=== PATIENT | female | born 1960 | race Caucasian/White ===

== ENCOUNTER → 2016-11-14 | Outpatient (CLI) | payer MEDICARE ==
[2016-11-14 07:19] LABS: Basophils # (A) 0.1 k/uL (0-0.2); Basophils % (A) 1 %; CH 32.5; CHCM 34.7; Eosinophils # (A) 0.2 k/uL (0-0.7); Eosinophils % (A) 3 %; HDW 2.67; HGB 15.8 gm/dL (11.4-16.0); Luc # (Auto) 0.17; Luc % (Auto) 2; Lymphocytes # (A) 2.3 k/uL (1.0-4.8); Lymphocytes % (A) 29 %; MCH 32.3 pg (25.0-35.0); MCHC 34.3 g/dL (31.0-37.0); MCV 94.1 fL (80.0-100.0); Mean Platelet Volume 7.9; Monocytes # (A) 0.3 k/uL (0-1.0); Monocytes % (A) 4 %; Neutrophils % (A) 62 %; RBC 4.89 m/uL (3.80-5.40); RDW 12.1 % (11.5-15.5); WBC 8.1 k/uL (3.8-10.6); WBC (Perox) 7.98
[2016-11-14 09:14] LABS: Erythrocyte Sedimentation Rate 8 mm/hr (0-20)
[2016-11-14 10:44] LABS: ALT 28 U/L (9-52); AST 16 U/L (14-36); Alkaline Phosphatase 73 U/L (38-126); Anion Gap 10 mmol/L; Blood Urea Nitrogen 21 mg/dL (7-17); Calcium 9.5 mg/dL (8.4-10.2); Carbon Dioxide 22 mmol/L (22-30); Chloride 110 mmol/L (98-107); Cholesterol 220 mg/dL (<200); Creatine Kinase 87 U/L (30-135); Glucose 103 mg/dL (74-99); HDL Cholesterol 39 mg/dL (40-60); Non-African American GFR(MDRD) >60 (>60 ml/min/1.73 sqM); Potassium 4.6 mmol/L (3.5-5.1); Sodium 142 mmol/L (137-145); Total Bilirubin 0.7 mg/dL (0.2-1.3); Total Protein 6.9 g/dL (6.3-8.2); Triglycerides 196 mg/dL (<150)
== END | disposition home or self-care (01) ==
LOC: LABWHC1 06:47
PROVIDERS: ATTEND Internal Medicine
DX: J44.9 Chronic obstructive pulmonary disease, unspecified (principal); E78.5 Hyperlipidemia, unspecified; E03.9 Hypothyroidism, unspecified; E55.9 Vitamin D deficiency, unspecified
CPT/HCPCS: 36415; 80053; 80061; 82550; 84439; 84443; 85025; 85652; 86140

== ENCOUNTER 2017-04-20 08:54 | Day surgery (SDC) | payer MEDICARE ==
[2017-04-17 16:20] VITALS: BMI 29.4
[~2017-04-20 08:54] MED LIST: LIDOCAINE 1% 20 ML VIAL (10MG/ML) FOR IV START INTRADERMA PRN
[2017-04-20 09:39] VITALS: RESP 16; TEMP 97.9
[2017-04-20] MEDS: LACTATED RINGERS 1,000 ML IV SCH ×2 (09:47→09:52)
[2017-04-20] MEDS ORDERED: GLYCOPYRROLATE 0.2 MG/ML 2 ML VIAL ONE (09:54)
[2017-04-20] MEDS ORDERED: PROPOFOL 10 MG/ML 20 ML VIAL IV ONE (09:54)
[2017-04-20] MEDS ORDERED: LIDOCAINE 1% INJ 10MG/ML (20 ML MDV) ONE (09:54)
--- NOTE | 2017-04-20 10:23 | P.PCN ---
Date of Procedure: 04/20/17 Preoperative Diagnosis: Postoperative Diagnosis: Procedure(s) Performed: Procedure: Esophagogastroduodenoscopy and biopsy. Preoperative diagnosis: Epigastric pain not responding to medical therapy. Postoperative diagnosis: 1. Sliding hiatal hernia with no obvious esophagitis or complicated reflux disease. 2. Mild gastritis and duodenitis. Preparation and sedation: Was provided by anesthesia. Brief clinical history: The patient is a 56-year-old female who was evaluated in the office regarding epigastric pain and bloating that she has had for the last several months without improvement with medical therapy including treatment for H. pylori infection. The patient had colonoscopy around 5 years ago. This evaluation is to assess for peptic ulcer disease, complicated reflux disease or other pathology. Procedure: With the patient on her left lateral decubitus position and after informed consent and adequate sedation, I passed the Olympus-GIF 160 video upper endoscope through the cricopharyngeus down the esophagus. GE junction was around 36 cm from the incisors and there was a sliding hiatal hernia measuring between 1 and 2 cm. The esophagus did not show any obvious erosions, ulcers, strictures or Bartholomew's esophagus. The endoscope was then passed into the stomach which was insufflated with air and inspected in detail including the retroflex view in the cardia. There was some mottling and erythema in the antrum but no ulcers or erosions. Pyloric channel did not show any ulcers. Duodenal bulb, post bulbar area and descending duodenum showed some mottling and erythema but no ulcers, erosions or bleeding. I obtained multiple biopsies from the duodenum, antrum and esophagus then the endoscope was withdrawn. The patient tolerated the procedure well. Plan: The patient was reassured. Will await biopsy results and make further plans. I will keep you updated on her progress. Implants: Indications for Procedure: Operative Findings: Description of Procedure:
[2017-04-20 10:35] VITALS: BP 117/65; PULSE 64
== END 2017-04-20 10:59 | disposition home or self-care (01) ==
LOC: ORWHC2ENDO 08:54
DX: K29.70 Gastritis, unspecified, without bleeding (principal); K29.80 Duodenitis without bleeding; K44.9 Diaphragmatic hernia without obstruction or gangrene; G40.909 Epilepsy, unspecified, not intractable, without status epilepticus; M19.90 Unspecified osteoarthritis, unspecified site; G89.29 Other chronic pain; Z90.710 Acquired absence of both cervix and uterus; Z90.49 Acquired absence of other specified parts of digestive tract; Z79.891 Long term (current) use of opiate analgesic; Z79.899 Other long term (current) drug therapy; Z88.5 Allergy status to narcotic agent; Z88.0 Allergy status to penicillin; Z88.1 Allergy status to other antibiotic agents; Z85.42 Personal history of malignant neoplasm of other parts of uterus
CPT/HCPCS: 88305; 88342; 43239; J2001; J2704

== ENCOUNTER → 2019-03-27 | Outpatient (CLI) | payer MEDICARE, OTHER ==
[2019-03-27 09:24] LABS: Basophils # (A) 0.1 k/uL (0-0.2); Basophils % (A) 1 %; Eosinophils # (A) 0.2 k/uL (0-0.7); Eosinophils % (A) 2 %; HGB 15.2 gm/dL (11.4-16.0); Lymphocytes # (A) 2.6 k/uL (1.0-4.8); Lymphocytes % (A) 32 %; MCH 31.5 pg (25.0-35.0); MCV 95.4 fL (80.0-100.0); Monocytes # (A) 0.3 k/uL (0-1.0); Monocytes % (A) 4 %; Neutrophils # (A) 4.7 k/uL (1.3-7.7); Neutrophils % (A) 59 %; Platelet Count 262 k/uL (150-450); RBC 4.82 m/uL (3.80-5.40); RDW 14.2 % (11.5-15.5)
[2019-03-27 10:24] LABS: Erythrocyte Sedimentation Rate 9 mm/hr (0-20)
[2019-03-27 17:31] LABS: Vitamin D 25 Hydroxy 26.9 ng/mL (30.0-100.0)
[2019-03-27 18:07] LABS: African American GFR (CKD) 82.8 (60.0-200.0); Albumin 4.6 g/dL (3.80-4.90); Albumin/Globulin Ratio 2.09 (1.60-3.17); Anion Gap 7.2 mmol/L (4.00-12.00); C Reactive Protein 0.5 mg/dL (0.0-0.8); Calcium 9.7 mg/dL (8.7-10.3); Carbon Dioxide 26.8 mmol/L (21.6-31.8); Globulin 2.2 g/dL (1.6-3.3); Potassium 4.9 mmol/L (3.5-5.5); Total Bilirubin 0.4 mg/dL (0.3-1.2); Total Protein 6.8 g/dL (6.2-8.2)
[2019-03-27 18:08] LABS: LDL Cholesterol,Calculated 122.2 mg/dL (0.0-131.0); VLDL Calculation 55.8 mg/dL (5.00-40.00)
[2019-03-27 19:11] LABS: T4, Free (Free Thyroxine) 0.9 ng/dL (0.80-1.80)
== END | disposition home or self-care (01) ==
LOC: LABWHC1 08:30
PROVIDERS: ATTEND Internal Medicine
DX: D64.9 Anemia, unspecified (principal); J44.9 Chronic obstructive pulmonary disease, unspecified; E78.5 Hyperlipidemia, unspecified; I10 Essential (primary) hypertension; E03.9 Hypothyroidism, unspecified; E55.9 Vitamin D deficiency, unspecified
CPT/HCPCS: 36415; 80053; 80061; 80074; 82306; 82550; 84439; 84443; 85025; 85652; 86140

== ENCOUNTER → 2020-02-06 | Outpatient (CLI) | payer MEDICARE, OTHER ==
[2020-02-06 19:58] LABS: African American GFR (CKD) 94.9 (60.0-200.0); Albumin 4.1 g/dL (3.80-4.90); Albumin/Globulin Ratio 2.05 (1.60-3.17); Anion Gap 8.3 mmol/L (4.00-12.00); Calcium 9.4 mg/dL (8.7-10.3); Carbon Dioxide 25.7 mmol/L (21.6-31.8); Non-African American GFR(CKD) 81.8 (60.0-200.0); Potassium 3.9 mmol/L (3.5-5.5); Total Bilirubin 0.6 mg/dL (0.2-1.2); Total Protein 6.1 g/dL (6.2-8.2)
[2020-02-10 07:59] LABS: Vit B1(Thiamine) 62 ug/L (38-122)
[2020-02-13 07:13] LABS: Nicotinamide 16 ng/mL; Nicotinic Acid None Detected; Nicotinuric Acid None Detected
== END | disposition home or self-care (01) ==
LOC: LABWHC1 13:31
PROVIDERS: ATTEND Psychiatry & Neurology Pain Medicine
DX: R53.83 Other fatigue (principal)
CPT/HCPCS: 36415; 80053; 82607; 84207; 84425; 84439; 84443; 84481; 84591

== ENCOUNTER → 2021-05-31 | Outpatient (CLI) | payer MEDICARE, OTHER ==
[2021-05-31 16:58] LABS: African American GFR (CKD) 80.8 (60.0-200.0); Albumin 4.3 g/dL (3.8-4.9); Albumin/Globulin Ratio 1.98 (1.60-3.17); Anion Gap 13.3 mmol/L (4.00-12.00); BUN/Creat Ratio 20.82 Ratio (12.00-20.00); Blood Urea Nitrogen 18.8 mg/dL (9.0-27.0); C Reactive Protein 1.3 mg/dL (0.00-0.80); Calcium 9.3 mg/dL (8.7-10.3); Carbon Dioxide 19.7 mmol/L (21.6-31.8); Chol/HDL Ratio 5.97 Ratio; Globulin 2.2 g/dL (1.6-3.3); HDL Cholesterol 36.7 mg/dL (40.00-60.00); LDL Cholesterol,Calculated 150.1 mg/dL (0.0-131.0); Magnesium 2.1 mg/dL (1.5-2.4); Non-African American GFR(CKD) 69.7 (60.0-200.0); Phosphorus 3.1 mg/dL (2.4-5.1); Potassium 4.1 mmol/L (3.5-5.5); Total Bilirubin 0.3 mg/dL (0.30-1.20); Total Protein 6.5 g/dL (6.2-8.2); Uric Acid 4.4 mg/dL (2.9-7.7); VLDL Calculation 32.2 mg/dL (5.00-40.00)
[2021-05-31 20:37] LABS: Basophils # (A) 0.05 X 10*3/uL (0.00-0.10); Basophils % (A) 0.8 %; Eosinophils # (A) 0.16 X 10*3/uL (0.04-0.35); Eosinophils % (A) 2.5 %; HCT 42.9 % (37.2-46.3); Lymphocytes # (A) 1.95 X 10*3/uL (0.90-5.00); MCH 31.1 pg (27.0-32.0); MCHC 32.6 g/dL (32.0-37.0); MCV 95.3 fL (80.0-97.0); Mean Platelet Volume 10.1 fL (9.5-12.2); Monocytes # (A) 0.39 X 10*3/uL (0.20-1.00); Monocytes % (A) 6.2 %; Neutrophils # (A) 3.72 X 10*3/uL (1.80-7.70); Neutrophils % (A) 59.2 %; Platelet Count 242 X 10*3/uL (140-440); RDW 12.8 % (11.5-14.5); WBC 6.29 X 10*3/uL (4.50-10.00)
[2021-06-01 01:09] LABS: Erythrocyte Sedimentation Rate 13 mm/Hr (0-30)
== END | disposition home or self-care (01) ==
LOC: LABWHC1 08:31
PROVIDERS: ATTEND Internal Medicine
DX: Z00.00 Encounter for general adult medical examination without abnormal findings (principal); E78.5 Hyperlipidemia, unspecified; D64.9 Anemia, unspecified; M81.0 Age-related osteoporosis without current pathological fracture
CPT/HCPCS: 36415; 80053; 80061; 82550; 83735; 84100; 84443; 84550; 85025; 85652; 86140

== ENCOUNTER → 2021-09-09 | Outpatient (CLI) | payer MEDICARE, OTHER ==
[2021-09-09 10:44] LABS: African American GFR (CKD) 81.1 (60.0-200.0); BUN/Creat Ratio 24.56 Ratio (12.00-20.00); Blood Urea Nitrogen 22.1 mg/dL (9.0-27.0); Calcium 9.2 mg/dL (8.7-10.3); Potassium 3.8 mmol/L (3.5-5.5)
== END | disposition home or self-care (01) ==
LOC: LABWHC1 07:39
PROVIDERS: ATTEND Internal Medicine
DX: Z00.00 Encounter for general adult medical examination without abnormal findings (principal); E78.5 Hyperlipidemia, unspecified; R94.5 Abnormal results of liver function studies
CPT/HCPCS: 36415; 80048; 84450; 84460

== ENCOUNTER → 2021-09-10 | Outpatient (CLI) | payer MEDICARE, OTHER ==
--- NOTE | 2021-09-10 07:45 | XR ---
EXAMINATION TYPE: XR chest 2V DATE OF EXAM: 09/10/2021 COMPARISON: NONE HISTORY: Prior tobacco use TECHNIQUE: Frontal and lateral views of the chest are obtained. FINDINGS: There is no focal air space opacity, pleural effusion, or pneumothorax seen. The cardiac silhouette size is within normal limits. Anterior fusion plate cervical thoracic junction is present. Stimulator leads terminate in the mid to lower thoracic spinal canal. IMPRESSION: No acute cardiopulmonary process.
== END | disposition home or self-care (01) ==
LOC: RADXRMAIN 07:22
PROVIDERS: ATTEND Internal Medicine
DX: R06.02 Shortness of breath (principal); Z87.891 Personal history of nicotine dependence
CPT/HCPCS: 71046

== ENCOUNTER 2022-11-15 14:46 | Emergency (ER) | payer MEDICARE, OTHER ==
[2022-11-15 14:52] VITALS: TEMP 98.1
[2022-11-15] MEDS ORDERED: SODIUM CHLORIDE 0.9% 500 ML 500 ML IV STA (15:06)
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
[2022-11-15 15:49] LABS: Basophils # (A) 0.1 k/uL (0-0.2); Basophils % (A) 1 %; Eosinophils # (A) 0.2 k/uL (0-0.7); Eosinophils % (A) 3 %; HGB 15.6 gm/dL (11.4-16.0); Lymphocytes # (A) 2.8 k/uL (1.0-4.8); Lymphocytes % (A) 37 %; MCH 34.4 pg (25.0-35.0); MCHC 35.5 g/dL (31.0-37.0); MCV 97.2 fL (80.0-100.0); Mean Platelet Volume 7.6; Monocytes # (A) 0.3 k/uL (0-1.0); Monocytes % (A) 4 %; Neutrophils # (A) 4.1 k/uL (1.3-7.7); Neutrophils % (A) 53 %; Platelet Count 227 k/uL (150-450); RBC 4.53 m/uL (3.80-5.40); RDW 12.2 % (11.5-15.5); WBC 7.6 k/uL (3.8-10.6)
[2022-11-15 15:59] LABS: Albumin 4.3 g/dL (3.5-5.0); Calcium 9.7 mg/dL (8.4-10.2); Potassium 3.7 mmol/L (3.5-5.1); Total Bilirubin 0.7 mg/dL (0.2-1.3); Total Protein 7.1 g/dL (6.3-8.2)
[2022-11-15 16:03] LABS: Appearance,Urine Clear (Clear); Bilirubin,Urine Negative (Negative); Blood,Urine Negative (Negative); Color,Urine Yellow; Glucose,Urine (UA) Negative (Negative); Ketones,Urine Negative (Negative); Leukocyte Esterase,Urine Trace (Negative); Mucus,Urine Occasional /hpf; Nitrite,Urine Negative (Negative); PH, Urine 5.5 (5.0-8.0); Protein,Urine Negative (Negative); RBC,Urine 1 /hpf (0-5); Specific Gravity,Urine 1.021 (1.001-1.035); Squamous Epithelial Cell,Urine 3 /hpf (0-4); Urobilinogen,Urine <2.0 mg/dL (<2.0); WBC,Urine 2 /hpf (0-5)
--- NOTE | 2022-11-15 17:28 | CT ---
EXAMINATION TYPE: CT abdomen pelvis w con DATE OF EXAM: 11/15/2022 COMPARISON: None HISTORY: Abdominal pain, nausea, and vomiting. CT DLP: 762.2 mGycm Automated exposure control for dose reduction was used. CONTRAST: Performed with IV Contrast, patient injected with 100ml mL of Isovue 300. Images obtained from the diaphragm to the level of the pelvis with the IV contrast. The lung bases are clear. No pleural effusion. Heart size is normal. No pericardial effusion. Liver s pleen and stomach pancreas and gallbladder appear normal. The bile ducts are not dilated. There is no adrenal mass. Kidneys show satisfactory contrast opacification. No hydronephrosis. Ureter s are not dilated. No retroperitoneal adenopathy. There is device implanted over the left posterior i liac bone. There is multilevel posterior fusion surgery in the lumbar spine. The bladder distends smo othly. No pelvic mass. No free fluid in the pelvis. There is hysterectomy. The terminal ileum appears normal. Appendix not clearly seen. No sign of thickened appendix. There is atherosclerotic vascular calcification. There is a first-degree L3-4 spondylolisthesis. No l umbar compression fracture. The bony pelvis is intact. The hip joints appear intact. There is no mesenteric edema. No ascites or free air. No sign of a bowel obstruction. There is retain ed fecal material in large bowel. IMPRESSION: Previous surgery. Atherosclerotic vascular disease. Mild constipation. Appendix not seen.
[2022-11-15 18:09] VITALS: BP 147/66; PULSE 60; RESP 16
== END 2022-11-15 18:09 | disposition home or self-care (01) ==
LOC: EC 14:46
DX: K59.00 Constipation, unspecified (principal); F31.9 Bipolar disorder, unspecified; F17.200 Nicotine dependence, unspecified, uncomplicated; Z88.0 Allergy status to penicillin; Z88.8 Allergy status to other drugs, medicaments and biological substances
CPT/HCPCS: 36415; 80053; 82150; 83605; 83690; 85025; 81001; 74177; 99284; 96360; Q9967

== ENCOUNTER → 2022-12-06 | Outpatient (CLI) | payer MEDICARE, OTHER ==
[2022-12-06 09:15] LABS: Partial Thromboplastin Time 24.5 sec (22.0-30.0); Prothrombin Time 10.2 sec (9.0-12.0)
== END | disposition home or self-care (01) ==
LOC: LABPAT 07:52
PROVIDERS: ATTEND Physical Medicine & Rehabilitation Pain Medicine
DX: Z01.818 Encounter for other preprocedural examination (principal); I49.1 Atrial premature depolarization
CPT/HCPCS: 85610; 85730; 93005

== ENCOUNTER → 2023-02-14 | Outpatient (CLI) | payer MEDICARE, OTHER ==
--- NOTE | 2023-02-14 14:49 | XR ---
EXAMINATION TYPE: XR chest 2V DATE OF EXAM: 02/14/2023 2:35 PM COMPARISON: Chest radiographs from TECHNIQUE: XR chest 2V Frontal and lateral views of the chest. CLINICAL INDICATION:Female, 62 years old with history of R10.9 UNSPECIFIED ABDOMINAL PAIN; FINDINGS: Lungs/Pleura: There is no evidence of pleural effusion, focal consolidation, or pneumothorax. Pulmonary vascularity: Unremarkable. Heart/mediastinum: Cardiomediastinal silhouette is unremarkable. Musculoskeletal: No acute osseous pathology. There is fixation hardware in the lower cervical spine. Other findings: Stimulator leads project over the spine. IMPRESSION: No acute cardiopulmonary disease/process.
[2023-02-14 20:13] LABS: Blood Urea Nitrogen 22.6 mg/dL (9.0-27.0); Calcium 9.3 mg/dL (8.7-10.3); Carbon Dioxide 21.7 mmol/L (21.6-31.8); Chloride 107 mmol/L (96-109); Glucose 126 mg/dL (70-110); Potassium 3.8 mmol/L (3.5-5.5); Sodium 143 mmol/L (135-145)
[2023-02-14 20:53] LABS: Basophils # (A) 0.07 X 10*3/uL (0.00-0.10); Basophils % (A) 1.1 %; Eosinophils # (A) 0.17 X 10*3/uL (0.04-0.35); Eosinophils % (A) 2.6 %; HCT 41.1 % (37.2-46.3); Lymphocytes # (A) 2.38 X 10*3/uL (0.90-5.00); Lymphocytes % (A) 36.3 %; MCH 33.4 pg (27.0-32.0); MCHC 34.1 d/dL (32.0-37.0); MCV 98.1 FL (80.0-97.0); Mean Platelet Volume 9.9 FL (9.5-12.2); Monocytes # (A) 0.48 X 10*3/uL (0.20-1.00); Monocytes % (A) 7.3 %; NRBC Per 100 WBC 0 X 10*3/uL (0.00-0.01); Neutrophils # (A) 3.44 X 10*3/uL (1.80-7.70); Neutrophils % (A) 52.4 %; Platelet Count 234 X 10*3/uL (140-440); RBC 4.19 X 10*6/uL (4.10-5.20); RDW 12.6 % (11.5-14.5); WBC 6.56 X 10*3/uL (4.50-10.00)
[2023-02-14 21:48] LABS: Erythrocyte Sedimentation Rate 13 mm/Hr (0-30)
== END | disposition home or self-care (01) ==
LOC: RADXRMAIN 14:09
PROVIDERS: ATTEND Internal Medicine
DX: R10.9 Unspecified abdominal pain (principal); R06.02 Shortness of breath; F17.200 Nicotine dependence, unspecified, uncomplicated
CPT/HCPCS: 71046; 80048; 85025; 85652

== ENCOUNTER 2023-03-23 13:15 | Day surgery (SDC) | payer MEDICARE, OTHER ==
[~2023-03-23 13:15] MED LIST changes: +LACTATED RINGERS 1,000 ML IV SCH; -LIDOCAINE 1% 20 ML VIAL (10MG/ML) FOR IV START INTRADERMA PRN
[2023-03-23 13:39] VITALS: TEMP 97
[2023-03-23] MEDS ORDERED: PROPOFOL 10 MG/ML 20 ML VIAL IV ONE (14:21)
[2023-03-23] MEDS ORDERED: LIDOCAINE 2% INJ 20 MG/ML (2 ML VIAL) ONE (14:21)
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
--- NOTE | 2023-03-23 14:32 | P.PCN ---
Date of Procedure: 03/23/23 Description of Procedure: PREOPERATIVE DIAGNOSIS: Gastroesophageal reflux disease. Epigastric abdominal pain POSTOPERATIVE DIAGNOSIS: Gastroesophageal reflux disease with erosive esophagitis Gastritis. Duodenitis OPERATION: Esophagogastroduodenoscopy with biopsies along antrum and duodenum SURGEON: Arabella Rosario MD ANESTHESIA: MAC. INDICATIONS: The patient is a 62-year-old female who presents with reflux disease. Benefits and risks of the procedure were described. Informed consent was obtained. DESCRIPTION: The patient was brought into the endoscopy suite and laid in the left lateral decubitus position. An Olympus gastroscope was passed along the posterior oropharynx down to the distal esophagus where the squamocolumnar junction was encountered at 35 cm from the incisors. The stomach was entered and no bile reflux was found. Additional findings are listed below. Biopsies with cold f orceps were obtained of the antrum. The first through third portion of the duodenum was examined. Retroflexion of the scope confirmed Hill grade 1 lower esophageal valve. The squamocolumnar junction demonstrated LA grade B erosive esophagitis. The stomach was desufflated. The patient tolerated the procedure well. FINDINGS: Squamocolumnar junction 35 cm from the incisors. Diaphragmatic hiatus at 35 cm. Hill grade 1 lower esophageal valve. LA grade B erosive esophagitis. Biopsies obtained of the duodenum. Chronic gastritis with biopsies obtained. RECOMMENDATIONS: Upper endoscopy as needed.
--- NOTE | 2023-03-23 14:51 | P.PCN ---
Date of Procedure: 03/23/23 Description of Procedure: PREOPERATIVE DIAGNOSIS: Colonoscopy screening. POSTOPERATIVE DIAGNOSIS: Colonoscopy screening. Diverticulosis, sigmoid, moderate Pandiverticulosis OPERATION: Colonoscopy to the cecum, ileocecal valve and appendiceal orifice. SURGEON: Arabella Rosario MD. ANESTHESIA: MAC. INDICATIONS: The patient is a 62-year-old female who presents for colonoscopy screening. Benefits and risks were described and informed consent was obtained. DESCRIPTION OF PROCEDURE: The patient had undergone a MiraLAX prep. The patient had been brought into the operating room and laid in the left lateral decubitus position. After adequate intravenous sedation, the rectum was examined with 2% lidocaine jelly. No external hemorrhoids were encountered. The rectal tone was within normal limits. No lesions were palpated in the rectal vault. An Olympus colonoscope was advanced until the cecum, ileocecal valve and appendiceal orifice were clearly viewed. The prep was excellent. Severe sigmoid diverticulosis with pandiverticulosis was encountered. No colonic polyps were found. No evidence of focal colitis was found. Retroflexion of the scope demonstrated grade 2 internal hemorrhoids without active bleeding or inflammation. The colon was desufflated. The patient had tolerated the procedure well. Withdrawal time was over 6 minutes. FINDINGS: Aronchick preparation quality scale 1 (1-5) Internal hemorrhoids, grade 2 No external prolapsed hemorrhoids. No arteriovenous malformations. No adenomatous polyps. No focal colitis. RECOMMENDATIONS: Lower endoscopy 10 years, 2032 Plan - Discharge Summary Discharge Rx Participant: No New Discharge Prescriptions: Continue traZODone HCL [Desyrel] 100 mg PO HS Baclofen [Lioresal] 10 mg PO TID PRN PRN Reason: Muscle Pain HYDROcodone/APAP 7.5-325MG [[place] 7.5-325] 1 tab PO TID PRN PRN Reason: Pain Clopidogrel [Plavix] 75 mg PO HS Simvastatin [Zocor] 20 mg PO HS Aspirin 81 mg PO HS Diclofenac Sodium Gel [Voltaren Gel] 1 applic TOPICAL QID PRN PRN Reason: Pain Unk Multi Vit Gummie 1 tab PO DAILY Otc Barbara 1 tab PO HS Topiramate [Topamax] 100 mg PO BID Naloxone [Narcan] 1 spray NASAL ONCE PRN PRN Reason: O.D. lamoTRIgine [LaMICtal] 100 mg PO HS Butalb/Acetaminophen/Caffeine [Esgic 50-325-40 mg Tablet] 1 tab PO Q6H PRN PRN Reason: Migraine Headache Unk Hair Skin And Nails 1 tab PO DAILY Discharge Medication List traZODone HCL [Desyrel] 100 mg PO HS 12/20/13 [History] Baclofen [Lioresal] 10 mg PO TID PRN 04/17/17 [History] HYDROcodone/APAP 7.5-325MG [[place] 7.5-325] 1 tab PO TID PRN 04/17/17 [History] Aspirin 81 mg PO HS 11/15/22 [History] Butalb/Acetaminophen/Caffeine [Esgic 50-325-40 mg Tablet] 1 tab PO Q6H PRN 11/15/22 [History] Clopidogrel [Plavix] 75 mg PO HS 11/15/22 [History] Diclofenac Sodium Gel [Voltaren Gel] 1 applic TOPICAL QID PRN 11/15/22 [History] Naloxone [Narcan] 1 spray NASAL ONCE PRN 11/15/22 [History] Simvastatin [Zocor] 20 mg PO HS 11/15/22 [History] Topiramate [Topamax] 100 mg PO BID 11/15/22 [History] lamoTRIgine [LaMICtal] 100 mg PO HS 11/15/22 [History] Otc Barbara 1 tab PO HS 03/22/23 [History] Unk Hair Skin And Nails 1 tab PO DAILY 03/22/23 [History] Unk Multi Vit Gummie 1 tab PO DAILY 03/22/23 [History] Follow up Appointment(s)/Referral(s): Arabella Rosario MD [STAFF PHYSICIAN] - 04/04/23 1:30 pm Patient Instructions/Handouts: Diverticulosis Diet (GEN), Diverticulosis (DC) Activity/Diet/Wound Care/Special Instructions: Repeat colonoscopy 10 years2032 Discharge Disposition: HOME SELF-CARE
[2023-03-23 15:04] VITALS: RESP 14
[2023-03-23 15:58] VITALS: BP 110/59; PULSE 68
== END 2023-03-23 15:59 | disposition home or self-care (01) ==
LOC: ORWHC2ENDO 13:15
PROVIDERS: ATTEND Surgery Plastic and Reconstructive Surgery
DX: Z12.11 Encounter for screening for malignant neoplasm of colon (principal); K64.1 Second degree hemorrhoids; K29.50 Unspecified chronic gastritis without bleeding; K21.00 Gastro-esophageal reflux disease with esophagitis, without bleeding; K21.9 Gastro-esophageal reflux disease without esophagitis; K29.80 Duodenitis without bleeding; K57.30 Diverticulosis of large intestine without perforation or abscess without bleeding; D72.820 Lymphocytosis (symptomatic); F17.200 Nicotine dependence, unspecified, uncomplicated; E78.5 Hyperlipidemia, unspecified; G40.909 Epilepsy, unspecified, not intractable, without status epilepticus; Z85.42 Personal history of malignant neoplasm of other parts of uterus; Z86.718 Personal history of other venous thrombosis and embolism; Z83.49 Family history of other endocrine, nutritional and metabolic diseases; Z80.3 Family history of malignant neoplasm of breast; Z79.82 Long term (current) use of aspirin; Z79.02 Long term (current) use of antithrombotics/antiplatelets; Z88.0 Allergy status to penicillin; Z79.899 Other long term (current) drug therapy
CPT/HCPCS: 88305; 45378; 43239; J2704; J2001

== ENCOUNTER 2023-07-27 10:33 | Inpatient (IN) | payer MEDICARE, OTHER ==
[2023-07-26 09:54] VITALS: BMI 21.2
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
[~2023-07-27 10:33] MED LIST changes: +Antibiotics per Pharmacy 1 EACH MISC MISCELLANE PRN; +HEPARIN SODIUM,PORCINE/PF 5,000 UNIT/0.5 ML SYRINGE SQ PRN; -LACTATED RINGERS 1,000 ML IV SCH; +PEG 3350 (420 GM/BTL) + LYTES 4,000 ML BOTTLE PO ONE; +SODIUM CHLORIDE 0.9% 2,000 ML IV ONE
[2023-07-27] MEDS ORDERED: LACTATED RINGERS 1,000 ML IV ONE (11:01)
[2023-07-27] MEDS ORDERED: LIDOCAINE 1% INJ 10MG/ML (20 ML MDV) ONE (11:21)
[2023-07-27] MEDS ORDERED: PROPOFOL 10 MG/ML 20 ML VIAL IV ONE (11:21)
[2023-07-27 11:39] LABS: Basophils # (A) 0.1 k/uL (0-0.2); Basophils % (A) 1 %; Eosinophils # (A) 0.2 k/uL (0-0.7); Eosinophils % (A) 2 %; HCT 45.1 % (34.0-46.0); HGB 15.5 gm/dL (11.4-16.0); Lymphocytes # (A) 2.8 k/uL (1.0-4.8); Lymphocytes % (A) 33 %; MCH 33.1 pg (25.0-35.0); MCHC 34.3 g/dL (31.0-37.0); MCV 96.6 fL (80.0-100.0); Mean Platelet Volume 7.7; Monocytes # (A) 0.4 k/uL (0-1.0); Monocytes % (A) 5 %; Neutrophils # (A) 4.8 k/uL (1.3-7.7); Neutrophils % (A) 57 %; Platelet Count 230 k/uL (150-450); RBC 4.67 m/uL (3.80-5.40); RDW 12.3 % (11.5-15.5); WBC 8.3 k/uL (3.8-10.6)
--- NOTE | 2023-07-27 11:49 | P.PCN ---
Date of Procedure: 07/27/23 Description of Procedure: PREOPERATIVE DIAGNOSIS: Diverticulosis with diverticulitis POSTOPERATIVE DIAGNOSIS: Diverticulosis with diverticulitis Transverse colon adenoma OPERATION: Colonoscopy to the ileocecal valve and appendiceal orifice, cecum Colonoscopy with cold forceps biopsy SURGEON: Arabella Rosario MD. ANESTHESIA: MAC. INDICATIONS: The patient is an 63-year-old female who presents with chronic abdominal pain due to diverticulosis with diverticulitis. Benefits and risks were described and informed consent was obtained. DESCRIPTION OF PROCEDURE: The patient had undergone Sutab prep. The patient had been brought into the operating room and laid in the left lateral decubitus position. After adequate intravenous sedation, the rectum was examined with 2% lidocaine jelly. External hemorrhoids were encountered. The rectal tone was within normal limits. No lesions were palpated in the rectal vault. An Olympus colonoscope was advanced until the cecum, ileocecal valve and appendiceal orifice were clearly viewed. The prep was fair. Sigmoid diverticulosis was encountered. Colonic polyps were found and removed. No evidence of focal colitis was found. Retroflexion of the scope demonstrated grade 2 internal hemorrhoids without active bleeding or inflammation. The colon was desufflated. The patient had tolerated the procedure well. Withdrawal time was over 6 minutes. FINDINGS: Aronchick preparation quality scale 2+ (1-5) Internal hemorrhoids, grade 3 with recent inflammation and bleeding External hemorrhoids, grade 3. No arteriovenous malformations. Sigmoid diverticulosis and had a redundant sigmoid colon Removal of 2 polyps: - Cold forceps biopsy at proximal transverse colon x 2, 4- 5 mm polyp. No focal colitis. RECOMMENDATIONS: Patient has recurrent abdominal pain from diverticulosis diverticulitis, resection advised
[2023-07-27 11:52] LABS: ALT 20 U/L (4-34); AST 22 U/L (14-36); African American GFR (CKD) >90 (>60 ml/min/1.73 sqM); Albumin 4.4 g/dL (3.5-5.0); Alkaline Phosphatase 56 U/L (38-126); Anion Gap 11 mmol/L; Blood Urea Nitrogen 19 mg/dL (7-17); Calcium 9.4 mg/dL (8.4-10.2); Carbon Dioxide 24 mmol/L (22-30); Chloride 104 mmol/L (98-107); Glucose 89 mg/dL (74-99); Non-African American GFR(CKD) >90 (>60 ml/min/1.73 sqM); Sodium 139 mmol/L (137-145); Total Protein 7.3 g/dL (6.3-8.2)
[2023-07-27] MEDS: NEOMYCIN 500 MG TAB PO SCH ×3 (13:17→23:37)
[2023-07-27] MEDS: metroNIDAZOLE 500 MG TAB PO SCH ×3 (13:18→23:37)
[2023-07-27] MEDS: LACTATED RINGERS 1,000 ML IV SCH (15:15)
[2023-07-27] MEDS: D5-0.45% NACL WITH KCL 20MEQ/L 1,000 ML IV SCH (15:15)
[2023-07-27] MEDS ORDERED: traZODone HCL 100 MG TAB PO SCH (21:00)
[2023-07-27] MEDS ORDERED: TEMAZEPAM 15 MG CAP PO ONE (21:00)
[2023-07-27] MEDS: lamoTRIgine 100 MG TAB PO SCH (21:38)
[2023-07-27] MEDS: HYDROcodone/APAP 7.5-325MG 1 EACH TAB PO PRN (21:38)
[2023-07-28] MEDS: BACLOFEN 10 MG TAB PO PRN (01:30)
[2023-07-28] MEDS: D5-0.45% NACL WITH KCL 20MEQ/L 1,000 ML IV SCH ×3 (01:30→22:03)
[2023-07-28] MEDS ORDERED: metroNIDAZOLE-NS PMX 500 MG in SALINE 1 100ML.BAG IVPB PRN (05:00)
[2023-07-28] MEDS ORDERED: HEPARIN SODIUM,PORCINE/PF 5,000 UNIT/0.5 ML SYRINGE SQ PRN (06:00)
[2023-07-28] MEDS: PANTOPRAZOLE 40 MG TABLET PO SCH (06:32)
[2023-07-28] MEDS: LACTATED RINGERS 1,000 ML IV SCH (06:32)
[2023-07-28] MEDS ORDERED: ALVIMOPAN 12 MG CAPSULE PO PRN (07:00)
[2023-07-28] MEDS ORDERED: ACETAMINOPHEN TAB 500 MG TAB PO PRN (07:00)
[2023-07-28] MEDS ORDERED: MELOXICAM 7.5 MG TAB PO PRN (07:00)
[2023-07-28 07:16] LABS: Basophils % (A) 1 %; Eosinophils # (A) 0.2 k/uL (0-0.7); Eosinophils % (A) 5 %; HCT 39.2 % (34.0-46.0); HGB 13.1 gm/dL (11.4-16.0); Lymphocytes # (A) 1.9 k/uL (1.0-4.8); Lymphocytes % (A) 41 %; MCH 32.7 pg (25.0-35.0); MCHC 33.5 g/dL (31.0-37.0); MCV 97.8 fL (80.0-100.0); Monocytes # (A) 0.3 k/uL (0-1.0); Monocytes % (A) 6 %; Neutrophils # (A) 2.1 k/uL (1.3-7.7); Neutrophils % (A) 46 %; Platelet Count 178 k/uL (150-450); RDW 12.2 % (11.5-15.5); WBC 4.5 k/uL (3.8-10.6)
[2023-07-28 07:35] LABS: African American GFR (CKD) >90 (>60 ml/min/1.73 sqM); Anion Gap 5 mmol/L; Blood Urea Nitrogen 9 mg/dL (7-17); Calcium 8.4 mg/dL (8.4-10.2); Carbon Dioxide 22 mmol/L (22-30); Chloride 114 mmol/L (98-107); Glucose 93 mg/dL (74-99); Non-African American GFR(CKD) >90 (>60 ml/min/1.73 sqM); Potassium 4.3 mmol/L (3.5-5.1); Sodium 141 mmol/L (137-145)
[2023-07-28] MEDS: ONDANSETRON 4 MG/2 ML VIAL IVP PRN (11:50)
[2023-07-28] MEDS ORDERED: DEXAMETHASONE SOD PHOSPHATE 4 MG/ML 1 ML VIAL IVP ONE (11:50)
[2023-07-28] MEDS ORDERED: fentaNYL (PF) 50 MCG/ML 2 ML AMP IVP ONE (12:22)
[2023-07-28] MEDS ORDERED: MIDAZOLAM 2 MG/2 ML VIAL IVP ONE ×2 (12:22)
--- NOTE | 2023-07-28 12:45 | P.ANPRN ---
Procedure Note - Anesthesia - Nerve Block Performed Bilateral Transversus Abdominis Single Time Out Performed: Yes (1222) Date of Procedure: 07/28/23 Procedure Start Time: Procedure Stop Time: Location of Patient: PreOp Indication: Acute Post-Operative Pain, Requested by Surgeon Specifically requested for management of pain by : Arabella Rosario Sedation Type: Sedate with meaningful contact maintained Preparation: Sterile Prep Position: Supine Catheter: None Needle Types: Pajunk Needle Gauge: 21 (x2) Ultrasound used to visualize needle placement: Yes Ultrasound used to observe medication spread: Yes Injectate: 0.5% Ropivacaine (see comment for volume) (15cc + 10cc nacl pf each side) Blood Aspirated: No Pain Paresthesia on Injection Noted: No Resistance on Injection: Normal Image Stored and Saved: Yes Events: Uneventful and Well Tolerated
[2023-07-28] MEDS ORDERED: ALBUTEROL HFA INHALER INHALATION ONE (12:55)
[2023-07-28] MEDS ORDERED: PROPOFOL 10 MG/ML 20 ML VIAL IV ONE (12:55)
[2023-07-28] MEDS ORDERED: SODIUM CHLORIDE 0.9% (PF) 10 ML VIAL ONE (12:55)
[2023-07-28] MEDS ORDERED: ROCURONIUM 10 MG/ML (5 ML VIAL) IV ONE (12:55)
[2023-07-28] MEDS ORDERED: ROPIVACAINE 5 MG/ML 30 ML VIAL ONE (12:55)
[2023-07-28] MEDS ORDERED: GLYCOPYRROLATE 0.2 MG/ML 2 ML VIAL ONE (12:55)
[2023-07-28] MEDS ORDERED: LIDOCAINE 1% INJ 10MG/ML (20 ML MDV) ONE (12:55)
[2023-07-28] MEDS ORDERED: SUCCINYLCHOLINE CHLORIDE 200 MG/10 ML VIAL IV ONE (12:55)
[2023-07-28] MEDS ORDERED: fentaNYL (PF) 50 MCG/ML 2 ML AMP ONE (12:55)
[2023-07-28] MEDS ORDERED: NEOSTIGMINE 1 MG/ML 10 ML VIAL ONE (12:55)
[2023-07-28] MEDS ORDERED: LIDOCAINE 0.5%-EPI 1:200,000 50 ML VIAL SQ ONE (13:00)
[2023-07-28] MEDS ORDERED: LACTATED RINGERS 1,000 ML IV ONE ×3 (13:00→16:13)
[2023-07-28] MEDS ORDERED: fentaNYL (PF) 50 MCG/1 ML VIAL IVP ONE (17:28)
--- NOTE | 2023-07-28 17:56 | P.OP ---
Date of Procedure: 07/28/23 Description of Procedure: SURGEON: DAVIS BASILIO MD PREOPERATIVE DIAGNOSES: 1. Sigmoid diverticulitis 2. Intractable abdominal pain 3. Tobacco abuse disorder 4. History of endometrial cancer status post hysterectomy 5. Peripheral vascular occlusive disease 6. Hyperlipidemia 7. Bipolar disorder 8. Depressive disorder 9. Chronic pain syndrome 10. History of deep venous thrombosis 11. Gastroesophageal reflux disease 12. Seizure disorder POSTOPERATIVE DIAGNOSES: 1. Sigmoid diverticulitis 2. Intractable abdominal pain 3. Tobacco abuse disorder 4. History of endometrial cancer status post hysterectomy 5. Peripheral vascular occlusive disease 6. Hyperlipidemia 7. Bipolar disorder 8. Depressive disorder 9. Chronic pain syndrome 10. History of deep venous thrombosis 11. Gastroesophageal reflux disease 12. Seizure disorder 13. Severe peritoneal adhesions 14. Pelvic adhesions OPERATION: 1. Robotic-assisted daVinci Xi sigmoid colectomy with low anterior resection using 29 mm Ethicon powered stapler 2. Robotic-assisted daVinci Xi laparoscopic lysis of adhesions over 1.5 hrs greater omentum to the abdominal wall 3. Intraoperative colonoscopy used for sigmoidoscopy Anesthesia: GETA, local, regional Estimated Blood Loss (ml): 10 Pathology: 1. Sigmoid colon 2. EEA donuts 3. Proximal colotomy Condition: stable Disposition: floor COMPLICATIONS: None. Operative Findings: 1. Severe epigastric and bilateral upper abdominal adhesions addressed with vessel sealer 2. Anastomosis with EEA stapler 29 mm 3. No tension or torsion along the anastomosis 4. Doughnuts thick and both sides and viable 5. Diverticulitis with dense left pelvic adhesions and redundant sigmoid colon 6. Negative leak test with viable anastomosis. 7. Severe interloop adhesions involving the ileum lysed 8. Appendix identified and undisturbed. INDICATIONS: The patient is a 63-year-old female who presents with change in bowel habits, sigmoid diverticulosis with diverticulitis and tortuous colon. She reports intractable abdominal pain and change in bowel habits. Benefits and risks of surgical intervention was described in detail including infection, injury to the ureter, colostomy creation, possibility for additional surgery was discussed at length. Informed consent was obtained. All questions of the patient and family were answered. DESCRIPTION: Earlier the patient had undergone a bowel prep using the enhanced colon recovery program. The patient was transferred to the operating room and placed supine. After general induction, the abdomen was prepped and draped in standard sterile fashion. Ioban was placed along the abdomen to minimize any contamination of skin floor. A Park catheter was placed. After a timeout protocol was performed, attention was then brought to the left upper quadrant whereby a 0 degree 5 mm laparoscopic trocar entry was performed. The abdominal cavity was entered and insufflated to 15 mmHg pressure, which was tolerated well. Diagnostic laparoscopy demonstrated severe greater omentum to abdominal adhesions. Next a robotic 12-mm trocar was placed along the right lateral abdominal wall 20 cm superior from the pelvis. Two 8 mm ports were placed along the upper abdomen. Ports were placed 10 cm apart from each other including 20 cm away from the target anatomy of the left pelvis. The 12-mm port was exchanged for an 8 mm robotic port at the left upper quadrant. The robot was docked along the left lateral abdomen. The patient was positioned in steep Trendelenburg position at 21-degrees. Using atraumatic graspers and vessel sealer, the robotic system was docked and primed as described. Instruments were interchanged by the fast food assistant restaurant manager including hook cautery, needle driver lifter of sanitation truck, robotic stapler and vessel sealer. The robot stapler was prepared along the right lateral abdominal wall. The stapler 12-mm port was arranged along the right lateral abdominal wall. Attention was brought to adhesions were greater omentum to abdominal wall adhesions were addressed using vessel sealer. Hemostasis was excellent. Next attention was brought to the sigmoid colon. The descending colon sigmoid colon was densely adherent to the left abdominal wall including the pelvis. Pelvic adhesions were carefully dissected using blunt dissection including vessel sealer and hook cautery. The appendix was normal in appearance and undisturbed. Moderate interloop adhesions involving the ileum were identified and dissected free using vessel sealer and blunt dissection. Over 2 feet of ileum had moderate adhesions and scar tissue which were freed of adhesions. The rest of the small bowel was unremarkable. Extensive lysis adhesions over 1.5 hours was performed involving the omental adhesions, pelvis, interloop adhesions. A stay suture using 3- 0 silk was placed along the anterior serosa of the redundant sigmoid colon. The sigmoid mesentery was mobilized using a vessel sealer whereby the descending colon was marked and tagged. Using multiple fires of the robot stapler 60 mm green load, the proximal sigmoid colon was divided. The mesentery of the sigmoid colon was mobilized towards the pelvic brim and sacral promontory using a vessel sealer. The sigmoid volvulus was reduced with viable colon. Next, the sigmoid colon was divided using the robotic stapler 60 mm black staple loads. The rest of the sigmoid colon mesentery was mobilized using vessel sealer. Additionally, the sigmoid colon was mobilized onto the colon to minimize injury to the ureters. I went to the foot of the bed to confirm sizers and placement of 29-mm Ethicon powered stapler. I re-scrubbed into the case. The robotic arms were temporarily undocked. A 29-mm anvil was placed with a 3-0 silk sutured at the tip of the anvil election assistant. Then the anvil was placed via the left upper quadrant 12 mm port. All robotic arms were re-docked. I went back to the console. The staple line was opened using cautery. The anvil was entered into the proximal descending colon. The colotomy was closed using 60 mm green load. Next, the sharp tip of the anvil election assistant was brought through the staple line. The anvil election assistant was removed from the abdomen using empty clip appliers. I went to the foot of the bed to place the powered Ethicon 29 mm stapler via the rectum. The anvil and stapler were mated for 1 minute. The doughnuts were intact on both sides and thick. An intraoperative leak test was performed as I inserted the colonoscope to the anastomosis. Endoscopic images were obtained. Irrigation was placed in the pelvis and no air leaks were identified. Irrigation fluid was aspirated from the pelvis until dry. I went back to the console. All sponges and needles were removed from the abdominal cavity. The robot was undocked. I re-scrubbed into the case. Via the left upper quadrant port, the sigmoid colon was removed using 15 mm Endo Catch bag. All sponges were removed from the abdominal cavity. The left upper quadrant incision was widened to 3-cm. No contamination had occurred throughout the case. The fascial defect was oversewn using 0 Vicryl and a Aron Saravia. Next all pneumoperitoneum was evacuated from the abdominal cavity. The 8-mm trocar sites were reapproximated using 4-0 Monocryl in an interrupted subcuticular fashion. Local anesthetic was infiltrated to all wounds for postop analgesia. All incisions were also cleansed with diluted hydrogen peroxide. An advance surgical dressing was placed over the colon extraction site. Liquid glue was applied to the rest of the skin incisions. The patient had tolerated the procedure well. The patient was extubated successfully. The patient was transferred to the postanesthesia care unit in stable condition. Intraoperative findings were described in detail to the patient's family.
[2023-07-28] MEDS: HYDROcodone/APAP 7.5-325MG 1 EACH TAB PO PRN (22:01)
[2023-07-28] MEDS: lamoTRIgine 100 MG TAB PO SCH (22:03)
[2023-07-28] MEDS: HYDROmorphone 1 MG/ML 1 ML SYRINGE IVP PRN (22:17)
[2023-07-28] MEDS: ACETAMINOPHEN IV (For NPO) 1,000 MG in EMPTY BAG 1 BAG IVPB SCH ×2 (22:17→23:34)
--- NOTE | 2023-07-28 22:30 | P.PN ---
Progress Note - Text Progress Note Date: 07/28/23 Patient reports pain which is appropriate. Tobacco cessation and counseling reiterated. Intraoperative findings reviewed. Low fiber diet advised. Disposition pending tolerating diet, pain controlled and voiding spontaneously.
[2023-07-28] MEDS ORDERED: BENZOCAINE/MENTHOL LOZENG 1 EACH LOZENGE MUCOUS MEM PRN (22:33)
[2023-07-28] MEDS: metroNIDAZOLE-NS PMX 500 MG in SALINE 1 100ML.BAG IVPB SCH (23:26)
[2023-07-28] MEDS: ENOXAPARIN 30 MG/0.3 ML SYRINGE SQ SCH (23:26)
[2023-07-28] MEDS: SIMETHICONE 40 MG/0.6 ML DROPS 2,000 MG/30 ML BOTTLE PO SCH (23:26)
[2023-07-29] MEDS: metroNIDAZOLE-NS PMX 500 MG in SALINE 1 100ML.BAG IVPB SCH ×3 (00:35→16:46)
[2023-07-29] MEDS: KETOROLAC 15 MG/ML 1 ML VIAL IVP SCH ×4 (00:38→18:17)
[2023-07-29] MEDS: ACETAMINOPHEN IV (For NPO) 1,000 MG in EMPTY BAG 1 BAG IVPB SCH ×4 (01:01→18:18)
[2023-07-29] MEDS: HYDROmorphone 1 MG/ML 1 ML SYRINGE IVP PRN ×3 (04:32→21:41)
[2023-07-29] MEDS: LACTATED RINGERS 1,000 ML IV SCH (06:34)
[2023-07-29] MEDS: PANTOPRAZOLE 40 MG TABLET PO SCH (07:37)
[2023-07-29] MEDS: ENOXAPARIN 30 MG/0.3 ML SYRINGE SQ SCH (08:04)
[2023-07-29] MEDS: ALVIMOPAN 12 MG CAPSULE PO SCH ×2 (08:04→21:29)
[2023-07-29] MEDS: ONDANSETRON 4 MG/2 ML VIAL IVP PRN (08:34)
[2023-07-29] MEDS: SIMETHICONE 40 MG/0.6 ML DROPS 2,000 MG/30 ML BOTTLE PO SCH ×4 (09:02→21:30)
[2023-07-29] MEDS: D5-0.45% NACL WITH KCL 20MEQ/L 1,000 ML IV SCH ×2 (09:05→18:17)
[2023-07-29 09:11] LABS: BUN/Creat Ratio 14.29 Ratio (12.00-20.00); Calcium 8.2 mg/dL (8.7-10.3); Carbon Dioxide 23.8 mmol/L (21.6-31.8); Chloride 108 mmol/L (96-109); Glucose 86 mg/dL (70-110); Potassium 4.1 mmol/L (3.5-5.5); Sodium 137 mmol/L (135-145)
[2023-07-29 10:21] LABS: Basophils # (A) 0.02 X 10*3/uL (0.00-0.10); Basophils % (A) 0.2 %; Eosinophils # (A) 0.01 X 10*3/uL (0.04-0.35); Eosinophils % (A) 0.1 %; HCT 35.1 % (37.2-46.3); HGB 11.8 g/dL (12.0-15.0); Lymphocytes % (A) 22.4 %; MCH 33.2 pg (27.0-32.0); MCHC 33.6 g/dL (32.0-37.0); MCV 98.9 FL (80.0-97.0); Mean Platelet Volume 11.2 FL (9.5-12.2); Monocytes # (A) 0.72 X 10*3/uL (0.20-1.00); Monocytes % (A) 7.3 %; NRBC Per 100 WBC 0 X 10*3/uL (0.00-0.01); Neutrophils # (A) 6.86 X 10*3/uL (1.80-7.70); Neutrophils % (A) 69.8 %; Platelet Count 157 X 10*3/uL (140-440); RBC 3.55 X 10*6/uL (4.10-5.20); RDW 12.2 % (11.5-14.5); WBC 9.83 X 10*3/uL (4.50-10.00)
--- NOTE | 2023-07-29 10:33 | P.PN ---
Subjective Progress Note Date: 07/29/23 NAEON. No F/C. No SOB or CP. Admits to incisional pain. No flatus or BM. Minimally ambulatory since OR. Voiding without issue. Tolerating liquids currently without issue. Objective - Vital Signs Vital signs: Vital Signs Temp 98.1 F 07/29/23 07:57 Pulse 54 L 07/29/23 07:57 Resp 18 07/29/23 07:57 BP 128/62 07/29/23 07:57 Pulse Ox 93 L 07/29/23 07:57 FiO2 Intake & Output 07/28/23 07/29/23 07/29/23 18:59 06:59 18:59 Intake Total 2550 Output Total 660 900 Balance 1890 -900 Intake: IV 2550 Output: Urine 650 900 Estimated Blood Loss 10 Other: Voiding Method Toilet Indwelling Catheter # Voids 3 1 - Exam Gen: AxO, NAD Pulm: non-labored respirations Abd: soft, mildly-tender around incisions, minimally distended, no guarding/rebound/rigidity Incisions: C/D/I, no erythema or fluctuence appreciated Extrem: no edema seen - Labs CBC & Chem 7: 07/29/23 06:42 07/29/23 06:42 Labs: Abnormal Lab Results - Last 24 Hours (Table) 07/29/23 07/29/23 Range/Units 06:42 06:42 RBC 3.55 L (4.10-5.20) X 10*6/uL Hgb 11.8 L (12.0-15.0) g/dL Hct 35.1 L (37.2-46.3) % MCV 98.9 H (80.0-97.0) FL MCH 33.2 H (27.0-32.0) pg Eosinophils # 0.01 L (0.04-0.35) X 10*3/uL Calcium 8.2 L (8.7-10.3) mg/dL Assessment and Plan Assessment: Patient is a 63 year old female who is POD#1 from laparoscopic sigmoidectomy. She is progressing well. Plan: -Diet as tolerated -PRN pain and nausea control -Encourage ambulation -Strict I/O -DVT/GI Ppx -Potential Dc today if tolerating diet with bowel function, ambulatory and voiding with controlled pain Justin Bowles MD General Surgery
[2023-07-29] MEDS: HYDROcodone/APAP 7.5-325MG 1 EACH TAB PO PRN (20:00)
[2023-07-29 20:53] LABS: Glucose,Whole Blood 111 mg/dL (70-110)
[2023-07-29] MEDS: lamoTRIgine 100 MG TAB PO SCH (21:29)
[2023-07-30] MEDS: metroNIDAZOLE-NS PMX 500 MG in SALINE 1 100ML.BAG IVPB SCH ×4 (00:25→23:47)
[2023-07-30] MEDS: KETOROLAC 15 MG/ML 1 ML VIAL IVP SCH ×5 (00:26→23:44)
[2023-07-30] MEDS: LACTATED RINGERS 1,000 ML IV SCH (02:22)
[2023-07-30] MEDS: D5-0.45% NACL WITH KCL 20MEQ/L 1,000 ML IV SCH ×3 (06:05→23:47)
[2023-07-30 06:11] LABS: Glucose,Whole Blood 101 mg/dL (70-110)
[2023-07-30] MEDS: HYDROcodone/APAP 7.5-325MG 1 EACH TAB PO PRN ×2 (08:58→20:06)
[2023-07-30] MEDS: ALVIMOPAN 12 MG CAPSULE PO SCH ×2 (08:59→20:06)
[2023-07-30] MEDS: ENOXAPARIN 30 MG/0.3 ML SYRINGE SQ SCH (08:59)
[2023-07-30] MEDS: PANTOPRAZOLE 40 MG TABLET PO SCH (08:59)
[2023-07-30] MEDS: SIMETHICONE 40 MG/0.6 ML DROPS 2,000 MG/30 ML BOTTLE PO SCH ×4 (09:00→23:44)
[2023-07-30 11:21] LABS: Glucose,Whole Blood 148 mg/dL (70-110)
--- NOTE | 2023-07-30 11:50 | P.PN ---
Progress Note - Text Progress Note Date: 07/30/23 Patient status post sigmoid resection. She has minimal point the pain. She is had some flatus. On exam vital signs appear stable. Abdomen soft. Incision sites are clean dry tach. Postoperative day 2 from sigmoid clipped. Patient to receive supportive care. She'll follow-up with Dr. Mclaughlin tomorrow.
[2023-07-30 16:33] LABS: Glucose,Whole Blood 98 mg/dL (70-110)
[2023-07-30 19:32] LABS: Glucose,Whole Blood 122 mg/dL (70-110)
[2023-07-30] MEDS: lamoTRIgine 100 MG TAB PO SCH (20:06)
[2023-07-30] MEDS ORDERED: traZODone HCL 100 MG TAB PO SCH (21:00)
[2023-07-31 05:57] LABS: Glucose,Whole Blood 99 mg/dL (70-110)
[2023-07-31] MEDS: KETOROLAC 15 MG/ML 1 ML VIAL IVP SCH ×2 (06:09→12:46)
[2023-07-31] MEDS: LACTATED RINGERS 1,000 ML IV SCH (08:25)
[2023-07-31] MEDS: PANTOPRAZOLE 40 MG TABLET PO SCH (08:27)
[2023-07-31] MEDS: ENOXAPARIN 30 MG/0.3 ML SYRINGE SQ SCH (08:27)
[2023-07-31] MEDS: metroNIDAZOLE-NS PMX 500 MG in SALINE 1 100ML.BAG IVPB SCH (08:27)
[2023-07-31] MEDS: ALVIMOPAN 12 MG CAPSULE PO SCH (08:27)
[2023-07-31] MEDS: SIMETHICONE 40 MG/0.6 ML DROPS 2,000 MG/30 ML BOTTLE PO SCH ×2 (08:28→12:46)
[2023-07-31] MEDS: D5-0.45% NACL WITH KCL 20MEQ/L 1,000 ML IV SCH (08:28)
[2023-07-31] MEDS: HYDROcodone/APAP 7.5-325MG 1 EACH TAB PO PRN (08:38)
[2023-07-31] MEDS: BACLOFEN 10 MG TAB PO PRN (08:39)
[2023-07-31 10:33] LABS: Basophils % (A) 0 %; Eosinophils # (A) 0.2 k/uL (0-0.7); Eosinophils % (A) 3 %; HGB 12.5 gm/dL (11.4-16.0); Lymphocytes # (A) 1.2 k/uL (1.0-4.8); Lymphocytes % (A) 20 %; MCH 33.2 pg (25.0-35.0); MCHC 33.8 g/dL (31.0-37.0); MCV 98.4 fL (80.0-100.0); Mean Platelet Volume 8.3; Monocytes # (A) 0.3 k/uL (0-1.0); Monocytes % (A) 6 %; Neutrophils # (A) 4.1 k/uL (1.3-7.7); Neutrophils % (A) 70 %; Platelet Count 148 k/uL (150-450); RBC 3.76 m/uL (3.80-5.40); RDW 12.3 % (11.5-15.5); WBC 5.9 k/uL (3.8-10.6)
[2023-07-31 10:53] LABS: African American GFR (CKD) >90 (>60 ml/min/1.73 sqM); Anion Gap 7 mmol/L; Blood Urea Nitrogen 10 mg/dL (7-17); Calcium 8.4 mg/dL (8.4-10.2); Carbon Dioxide 24 mmol/L (22-30); Chloride 108 mmol/L (98-107); Glucose 108 mg/dL (74-99); Non-African American GFR(CKD) >90 (>60 ml/min/1.73 sqM); Sodium 139 mmol/L (137-145)
[2023-07-31 11:32] LABS: Glucose,Whole Blood 154 mg/dL (70-110)
--- NOTE | 2023-07-31 14:33 | P.DS ---
Providers Expected date of discharge: 07/31/23 Attending physician: Arabella Rosario Primary care physician: [facility] Course: Discharge diagnosis 1. Sigmoid diverticulitis 2. Intractable abdominal pain 3. Tobacco abuse disorder 4. History of endometrial cancer status post hysterectomy 5. Peripheral vascular occlusive disease 6. Hyperlipidemia 7. Bipolar disorder 8. Depressive disorder 9. Chronic pain syndrome 10. History of deep venous thrombosis 11. Gastroesophageal reflux disease 12. Seizure disorder 13. Severe peritoneal adhesions 14. Pelvic adhesions Hospital course The patient is a 63-year-old female who presents with change in bowel habits, sigmoid diverticulosis with diverticulitis and tortuous colon. She is status post Robotic-assisted daVinci Xi sigmoid colectomy with low anterior resection and lysis of adhesions. Patient tolerated surgery well. Pain is controlled. She is tolerating diet. She is having bowel movements. She is afebrile. She has been up and ambulating. She is stable for discharge. Physician Factory Supervisor note has been reviewed by physician. Signing provider agrees with the documented findings, assessment, and plan of care. Patient Condition at Discharge: Stable Plan - Discharge Summary Discharge Rx Participant: No New Discharge Prescriptions: New Simethicone [Gas-X] 125 mg PO AC-TID PRN #20 capsule PRN Reason: Pain Acetaminophen Tab [Tylenol Tab] 1,000 mg PO Q6HR PRN #30 tablet PRN Reason: Pain Ibuprofen [Motrin] 600 mg PO Q8HR PRN #30 tab PRN Reason: Pain Continue traZODone HCL [Desyrel] 100 mg PO HS Baclofen [Lioresal] 10 mg PO TID PRN PRN Reason: Muscle Pain HYDROcodone/APAP 7.5-325MG [Notrees 7.5-325] 1 tab PO TID PRN PRN Reason: Pain Clopidogrel [Plavix] 75 mg PO HS Simvastatin [Zocor] 20 mg PO HS Aspirin 81 mg PO HS Diclofenac Sodium Gel [Voltaren 1% Gel] 1 applic TOPICAL QID PRN PRN Reason: Pain Unk Multi Vit Gummie 1 tab PO DAILY Otc Barbara 1 tab PO HS Pantoprazole [Protonix] 40 mg PO DAILY Topiramate [Topamax] 100 mg PO BID Naloxone [Narcan] 1 spray NASAL ONCE PRN PRN Reason: O.D. lamoTRIgine [LaMICtal] 100 mg PO HS Butalb/Acetaminophen/Caffeine [Esgic 50-325-40 mg Tablet] 1 tab PO Q6H PRN PRN Reason: Migraine Headache Unk Hair Skin And Nails 1 tab PO DAILY Discharge Medication List traZODone HCL [Desyrel] 100 mg PO HS 12/20/13 [History] Baclofen [Lioresal] 10 mg PO TID PRN 04/17/17 [History] HYDROcodone/APAP 7.5-325MG [Notrees 7.5-325] 1 tab PO TID PRN 04/17/17 [History] Aspirin 81 mg PO HS 11/15/22 [History] Butalb/Acetaminophen/Caffeine [Esgic 50-325-40 mg Tablet] 1 tab PO Q6H PRN 11/15/22 [History] Clopidogrel [Plavix] 75 mg PO HS 11/15/22 [History] Diclofenac Sodium Gel [Voltaren 1% Gel] 1 applic TOPICAL QID PRN 11/15/22 [History] Naloxone [Narcan] 1 spray NASAL ONCE PRN 11/15/22 [History] Simvastatin [Zocor] 20 mg PO HS 11/15/22 [History] Topiramate [Topamax] 100 mg PO BID 11/15/22 [History] lamoTRIgine [LaMICtal] 100 mg PO HS 11/15/22 [History] Otc Barbara 1 tab PO HS 03/22/23 [History] Unk Hair Skin And Nails 1 tab PO DAILY 03/22/23 [History] Unk Multi Vit Gummie 1 tab PO DAILY 03/22/23 [History] Pantoprazole [Protonix] 40 mg PO DAILY 07/26/23 [History] Acetaminophen Tab [Tylenol Tab] 1,000 mg PO Q6HR PRN #30 tablet 07/28/23 [Rx] Ibuprofen [Motrin] 600 mg PO Q8HR PRN #30 tab 07/28/23 [Rx] Simethicone [Gas-X] 125 mg PO AC-TID PRN #20 capsule 07/28/23 [Rx] Follow up Appointment(s)/Referral(s): Arabella Rosario MD [STAFF PHYSICIAN] - 08/01/23 (TELEHEALTH) Patient Instructions/Handouts: Diverticulitis (ED), Low Fiber Diet (DC), Diverticulitis Diet (GEN), Colectomy Diet (DC) Activity/Diet/Wound Care/Special Instructions: TELEHEALTH APPTDR CALLS YOU BETWEEN 8am and 8 pm EXPECT BOWEL MOVEMENT WITH BLOOD FOR 1 WEEK TAKE LAXATIVE FOR CONSTIPATION AFTER 4 DAYS, 08/01/23 Wear abdominal binder for comfort. No lifting over 4 pounds in 4 weeks Aug 28December shower. No bath tub soaks for two weeks until Aug 04 Avoid steak, tough meats and seeds such as raspberry seeds. See diverticulitis, low fiber, colectomy diet Use Tylenol and ibuprofen scheduled for the next 24-48 hours for best pain relief. Use ice along incisions for today to prevent swelling. Discharge Disposition: HOME SELF-CARE
[2023-07-31 15:16] VITALS: BP 153/108; PULSE 77; RESP 15; TEMP 98.6
[2023-08-01 08:13] LABS: Anabasine Urine <2.0 ng/mL (<2.0)
== END 2023-07-31 16:03 | disposition home or self-care (01) | DRG 329 ==
LOC: ORWHC2ENDO 10:33 → 4SSUR 10:34 → ORWHC2ENDO 07-31 16:03
PROVIDERS: ADMIT Surgery Plastic and Reconstructive Surgery; ATTEND Surgery Plastic and Reconstructive Surgery
PROC: 0DBL8ZX Excision of Transverse Colon, Via Natural or Artificial Opening Endoscopic, Diagnostic (ICD-10-PCS; 2023-07-27)
PROC: 8E0W4CZ Robotic Assisted Procedure of Trunk Region, Percutaneous Endoscopic Approach (ICD-10-PCS; principal; 2023-07-28 11:55)
PROC: 0DJD8ZZ Inspection of Lower Intestinal Tract, Via Natural or Artificial Opening Endoscopic (ICD-10-PCS; principal; 2023-07-28 11:55)
PROC: 0DBN4ZZ Excision of Sigmoid Colon, Percutaneous Endoscopic Approach (ICD-10-PCS; principal; 2023-07-28 11:55)
PROC: 0DNU4ZZ Release Omentum, Percutaneous Endoscopic Approach (ICD-10-PCS; principal; 2023-07-28 11:55)
PROC: 0DNB4ZZ Release Ileum, Percutaneous Endoscopic Approach (ICD-10-PCS; principal; 2023-07-28 11:55)
DX: K57.33 Diverticulitis of large intestine without perforation or abscess with bleeding (principal); K56.2 Volvulus; G40.909 Epilepsy, unspecified, not intractable, without status epilepticus; F31.9 Bipolar disorder, unspecified; N73.6 Female pelvic peritoneal adhesions (postinfective); K64.8 Other hemorrhoids; K64.4 Residual hemorrhoidal skin tags; E78.5 Hyperlipidemia, unspecified; K21.9 Gastro-esophageal reflux disease without esophagitis; I99.8 Other disorder of circulatory system; G89.4 Chronic pain syndrome; M25.552 Pain in left hip; M25.551 Pain in right hip; M54.9 Dorsalgia, unspecified; M54.2 Cervicalgia; M19.90 Unspecified osteoarthritis, unspecified site; J30.2 Other seasonal allergic rhinitis; F17.200 Nicotine dependence, unspecified, uncomplicated; Z71.6 Tobacco abuse counseling; Z79.82 Long term (current) use of aspirin; Z79.02 Long term (current) use of antithrombotics/antiplatelets; Z79.899 Other long term (current) drug therapy; Z86.718 Personal history of other venous thrombosis and embolism; Z85.42 Personal history of malignant neoplasm of other parts of uterus; Z87.440 Personal history of urinary (tract) infections; Z88.5 Allergy status to narcotic agent; Z88.0 Allergy status to penicillin
CPT/HCPCS: 45380; 64488; 80048; 80053; 80323; 85025; 86850; 86900; 86901; 88305; 88307

== ENCOUNTER → 2024-02-09 | Outpatient (CLI) | payer MEDICARE, OTHER ==
--- NOTE | 2024-02-09 17:29 | CT ---
EXAMINATION TYPE: CT angio neck DATE OF EXAM: 02/09/2024 COMPARISON: None HISTORY: occlusion CT DLP: 1341.1 mGycm CONTRAST: CTA cervical carotids is performed and with IV Contrast, patient injected with 65 mL of Isovue 370. Contrast CTA of the cervical carotids was performed 3-D reconstruction imaging obtained at a separate workstation. Right carotid system: Mild plaque is seen of the right common carotid artery. There is mild plaque a lso noted at the carotid bulb. Estimated diameter reduction is 50%. ECA is patent. Right vertebra l artery appears unremarkable. Left carotid system: There is nonvisualization of the left common carotid artery from its origin thro ughout its expected course. There is also nonvisualization of the internal carotid artery with the ex ception of retrograde flow at the intracranial portion of the left internal carotid artery. ECA is pa tent and may fill in a retrograde manner.. Left vertebral artery appears unremarkable. IMPRESSION: 1. 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 2. 50% diameter reduction proximal right ICA. NASCET criteria was used in interpretation of this exam?
== END | disposition home or self-care (01) ==
LOC: RADCTMAIN 15:47
PROVIDERS: ATTEND Surgery Vascular Surgery
DX: I65.23 Occlusion and stenosis of bilateral carotid arteries (principal); I65.22 Occlusion and stenosis of left carotid artery
CPT/HCPCS: 70498; Q9967

== ENCOUNTER 2024-06-07 10:22 | Day surgery (SDC) | payer MEDICARE, OTHER ==
[2024-06-06 09:00] VITALS: BMI 23.0
[~2024-06-07 10:22] MED LIST changes: +ALPRAZolam 0.25 MG TAB PO PRN; +ALPRAZolam 0.5 MG TAB PO PRN; +ATORVASTATIN 80 MG TAB PO STA; -Antibiotics per Pharmacy 1 EACH MISC MISCELLANE PRN; +HEPARIN SODIUM,PORCINE (1 ML) 2,500 UNIT in SODIUM CHLORIDE 0.9% 250 ML IRRIGATION PRN; +HEPARIN SODIUM,PORCINE 10,000 UNIT in SODIUM CHLORIDE 0.9% 1,000 ML IRRIGATION PRN; -HEPARIN SODIUM,PORCINE/PF 5,000 UNIT/0.5 ML SYRINGE SQ PRN; +NITROGLYCERIN SL TABS 0.4 MG TAB SUBLINGUAL PRN; -PEG 3350 (420 GM/BTL) + LYTES 4,000 ML BOTTLE PO ONE; -SODIUM CHLORIDE 0.9% 2,000 ML IV ONE
[2024-06-07] MEDS: SODIUM CHLORIDE 0.9% 1,000 ML in EMPTY BAG 1 BAG IV SCH (10:39)
[2024-06-07] MEDS: ASPIRIN 325 MG TAB PO STA (10:40)
[2024-06-07] MEDS: IV FLUID CONTINUATION 1,000 ML IV ONE (10:40)
[2024-06-07 10:51] VITALS: RESP 16; TEMP 98.7
[2024-06-07] MEDS: fentaNYL (PF) 50 MCG/ML 2 ML AMP IVP ONE (13:45)
[2024-06-07] MEDS: MIDAZOLAM 2 MG/2 ML VIAL IVP ONE (13:45)
[2024-06-07] MEDS: LIDOCAINE 1% INJ 10MG/ML (20 ML MDV) SQ ONE (13:47)
[2024-06-07] MEDS: VERAPAMIL SYRINGE (5 MG/10 ML) INTRAARTER ONE (13:50)
[2024-06-07] MEDS: HEPARIN SODIUM 1,000 UN/ML (10ML VL) IVP ONE ×2 (13:50→13:54)
[2024-06-07] MEDS: NITROGLYCERIN 1000MCG/10ML SYRINGE INTRAARTER ONE (14:15)
[2024-06-07] MEDS: ADENOSINE 90 MG in SODIUM CHLORIDE 0.9% 60 ML IVP ONE (14:20)
[2024-06-07] MEDS: IOPAMIDOL-370 100ML BTL INJ ONE ×2 (14:41→14:49)
[2024-06-07] MEDS: SODIUM CHLORIDE 0.9% 1,000 ML IV ONE (14:43)
[2024-06-07 15:29] VITALS: PULSE 50
[2024-06-07] MEDS ORDERED: RX INFO: IV CONTRAST WAS GIVEN 1 EACH MISC MISCELLANE PRN (16:24)
[2024-06-07] MEDS ORDERED: MAG HYDROX/AL HYDROX/SIMETH 30 ML CUP PO PRN (16:24)
[2024-06-07] MEDS ORDERED: ZOLPIDEM 5 MG TAB PO PRN (16:24)
[2024-06-07] MEDS ORDERED: ATROPINE SULFATE 0.1 MG/ML 10ML SYRINGE IV PRN (16:24)
[2024-06-07] MEDS ORDERED: SODIUM CHLORIDE 0.9% 1,000 ML in EMPTY BAG 1 BAG IV SCH (16:30)
--- NOTE | 2024-06-07 16:34 | P.PRCINT ---
Percutaneous Coronary Int. - Percutaneous Coronary Intervention Percutaneous Coronary Intervention: PROCEDURES PERFORMED: Left heart catheterization, bilateral coronary angiography, ultrasound guided arterial access, iFR/FFR RCA, iFR left main, IVUS RCA, PCI RCA with a 2.5 x 8mm Xience ALFREDITO INDICATION: NYHA class 3 angina, CAD CONSENT:I have discussed the risks, benefits and alternative therapies for the above-mentioned procedure and for both sedation/analgesia as well as necessary blood product administration, if indicated, as they pertain to this patient. The patient has indicated understanding and acceptance of the risks and procedures discussed. PROCEDURE: After the risks, benefits and alternatives of the above mentioned procedure explained in detail with the patient, informed consent was obtained. Patient was taken to the catheterization lab and prepped and draped in usual fashion. Ultrasound guidance was used to assess for arterial access. 1% lidocaine was used to anesthetize the right radial artery. A 6-Bulgarian sheath was placed in the right radial artery using modified Seldinger technique and ultrasound guidance. Left coronary angiography was performed with a 5-Bulgarian JL 3.5 catheter and right coronary angiography was performed with a 5-Bulgarian FR5 catheter in various views. A 5-Bulgarian FR5 catheter was inserted into the left ventricle and pressure measurements were obtained. The decision was made to perform functional assessment of the left main given some dampening noted with engagement of 5-Bulgarian catheter may have been related to catheter been up against the wall. Heparin was given. Using the FL 3.5 catheter, the 0.014 pressure wire was advanced the left main and normalize. It was then advanced 1 cm into the LAD and iFR (RFR) was performed and was normal at 1.0. Decision was made to perform functional assessment of the RCA. Using a 6-Bulgarian AR to catheter, a 0.014 pressure wire was then advanced the aorta and normalize. It was then advanced 1-2 cm into the RCA and iFR (RFR) was performed and was borderline at 0.90. Patient's symptoms were classic and therefore decision was made to perform FFR and patient was given adenosine with FFR 0.80. IVUS was performed which showed focal 75% stenosis of the ostial RCA. Therefore decision was made to perform stenting of the RCA. A 2.5 x 8 mm Xience ALFREDITO was placed at the origin of the RCA. Repeat intravascular ultrasound showed excellent stent apposition with 0% residual stenosis and no other significant stenosis and no dissection. Final angiograms were performed. Preintervention there was 75% stenosis and TIANA-3 flow and postintervention there was 0% stenosis and TIANA-3 flow. The right radial sheath was removed and a TR band was placed with hemostasis achieved. The patient tolerated the procedure well. Patient was transported back to the post catheterization holding area in stable condition. Conscious Sedation: Patient was monitored under the direct supervision of myself for conscious sedation using Versed and fentanyl for a total duration of 60 minutes HEMODYNAMICS: Ao: 118/71 LV: 121/5, LVEDP 9 SELECTIVE CORONARY ARTERIOGRAPHY: LEFT MAIN: The left main is a large caliber vessel which bifurcates into the LAD and circumflex. There is 20-30% stenosis. LEFT ANTERIOR DESCENDING CORONARY ARTERY: LAD is a large caliber vessel which wraps around to the apex. There is mild mid LAD 20-30% stenosis. LEFT CIRCUMFLEX CORONARY ARTERY: Left circumflex is a moderate caliber vessel with mild luminal irregularities. RIGHT CORONARY ARTERY: The right coronary artery is a large caliber vessel which gives off a PDA and PLV branch and is the dominant vessel. There is an ostial RCA 75% stenosis and otherwise mid RCA 20% stenosis. FINAL IMPRESSION: 1. CAD as described above including 75% RCA stenosis, 20-30% left main, 20-30% mid LAD 2. Normal left sided filling pressures 3. Normal iFR (RFR) left main 4. iFR (RFR)/ FFR RCA 0.90 and 0.80 5. S/p PCI RCA with a 2.5 x 8mm Xience ALFREDITO PLAN: 1. Aggressive risk factor modification per most recent ACC/AHA guidelines. 2. Continue dual antiplatelets with aspirin and Plavix for 6 months.
[2024-06-07 18:36] VITALS: BP 132/75
[2024-06-07] MEDS ORDERED: ATORVASTATIN 80 MG TAB PO SCH (21:00)
[2024-06-08] MEDS ORDERED: ASPIRIN 81 MG PO SCH (09:00)
[2024-06-08] MEDS ORDERED: CLOPIDOGREL 75 MG TAB PO SCH (09:00)
== END 2024-06-07 18:31 | disposition home or self-care (01) ==
LOC: CATHCVL 10:22
PROVIDERS: ATTEND Internal Medicine
CPT/HCPCS: 92978; 93458; 93571; 93799